=== PATIENT | male | born 1985 | race Caucasian/White ===

== ENCOUNTER 2017-02-03 17:03 | Emergency (ER) | payer OTHER ==
[~2017-02-03] VITALS: Ht 188 cm; Wt 88.2 kg
[~2017-02-03 17:03] MED LIST: INSLAN SQ; INSNOV SQ; LURA80 PO; QUET300T2 PO; SERT50TA12 PO
[2017-02-03 17:23] LABS: GLUCOSE,POINT OF CARE 172 MG/DL (70-110)
[2017-02-03] MEDS ORDERED: TOPI100T37 PO (17:36)
[2017-02-03] MEDS ORDERED: HALO10 PO (17:36)
[2017-02-03] MEDS ORDERED: TRAZ-147 PO (17:36)
[2017-02-03] MEDS ORDERED: BENZ2TAB10 PO (17:36)
[2017-02-03] MEDS ORDERED: OMEP20 PO (17:36)
[2017-02-03] MEDS ORDERED: VENL50TA44 PO (17:36)
[2017-02-03] MEDS ORDERED: PANT40TA25 PO (17:36)
[2017-02-03] MEDS ORDERED: ZIPR80CA2 PO (17:36)
[2017-02-03 17:44] LABS: BASOPHILS # (AUTO) 0.06 K/uL (0.00-0.20); BASOPHILS % (AUTO) 0.4 % (0.0-2.0); EOSINOPHILS # (AUTO) 0.05 K/uL (0.00-0.70); EOSINOPHILS % (AUTO) 0.33 % (1.0-6.0); HEMATOCRIT 37.5 % (41-53); HEMOGLOBIN 12.6 g/dL (13.5-17.5); LYMPHOCYTES # (AUTO) 2.8 K/uL (1.0-4.8); LYMPHOCYTES % (AUTO) 18.4 % (22.0-44.0); MEAN CORPUSCULAR HEMOGLOBIN 31.4 pg (26.0-34.0); MEAN CORPUSCULAR HGB CONC 33.5 G/dL (31.0-37.0); MEAN CORPUSCULAR VOLUME 94 fL (80-100); MONOCYTES # (AUTO) 0.8 K/uL (0.1-1.0); MONOCYTES % (AUTO) 5.3 % (2.0-9.0); NEUTROPHILS # (AUTO) 11.6 K/uL (1.8-7.7); NEUTROPHILS % (AUTO) 75.6 % (40.0-70.0); PLATELET COUNT (AUTO) 450 K/uL (150-450); RED CELL DISTRIBUTION WIDTH 15.2 % (11.5-14.5); WHITE BLOOD COUNT (AUTO) 15.3 K/uL (4.5-11.0)
[2017-02-03 17:57] LABS: ANION GAP 14 mmol/L (8-16); CALCIUM, TOTAL 9.3 mg/dL (8.8-10.5); CARBON DIOXIDE 24 mmol/L (22-29); CHLORIDE 99 mmol/L (98-107); CREATININE 1.13 mg/dL (0.60-1.30); GLOMERULAR FILTR. RATE CALC > 60 mL/min (>60); SODIUM SERUM 137 mmol/L (136-145); UREA NITROGEN, BLOOD 15 mg/dL (7-18)
[2017-02-03 18:02] LABS: ALANINE AMINOTRANSFERASE 43 U/L (12-78); ALBUMIN 3.6 g/dL (3.4-5.0); ASPARTATE AMINOTRANSFERASE 24 U/L (15-37); BILIRUBIN,TOTAL 0.7 mg/dL (0.1-1.0); TOTAL PROTEIN, SERUM 7.5 g/dL (6.4-8.2)
[2017-02-03] MEDS ORDERED: ONDANSETRON HCL 4 MG/2 ML VIAL IVP ONE (18:15)
[2017-02-03] MEDS ORDERED: MORPHINE SULFATE 4 MG/ML SYRINGE IVP ONE (18:15)
[2017-02-03 18:19] LABS: APPEARANCE,URINE CLEAR (CLEAR); GLUCOSE, URINE (UA) >=1000 mg/dL (NEGATIVE); KETONES,URINE >=80 mg/dL (NEGATIVE); LEUKOCYTE ESTERASE ,URINE NEGATIVE (NEGATIVE); OCCULT BLOOD,URINE NEGATIVE (NEGATIVE); PROTEIN,URINE NEGATIVE (NEGATIVE)
[2017-02-03 18:24] LABS: ADD UA MICROSCOPIC YES
[2017-02-03 18:26] LABS: SQUAMOUS EPITHELIAL CELL,UR Few /LPF (None Seen)
[2017-02-03 18:27] LABS: RBC,URINE None Seen /HPF (0-2); WBC,URINE None Seen /HPF (0-5)
[2017-02-03 21:45] VITALS: BP 104/64
== END 2017-02-03 22:37 | disposition home or self-care (01) ==
LOC: EMS 17:04
DX: E11.43 Type 2 diabetes mellitus with diabetic autonomic (poly)neuropathy (principal); K31.84 Gastroparesis; E78.00 Pure hypercholesterolemia, unspecified; E03.9 Hypothyroidism, unspecified; Z79.4 Long term (current) use of insulin; Z88.8 Allergy status to other drugs, medicaments and biological substances
CPT/HCPCS: 36415; 74022; 80053; 80307; 81001; 82962; 83690; 85025; 96374; 96375; 99285; J2270; J2405

== ENCOUNTER 2017-02-04 00:43 | Inpatient (IN) | payer OTHER ==
[~2017-02-04] VITALS: Ht 188 cm; Wt 87.4 kg
[~2017-02-04 00:43] MED LIST changes: +BENZ2TAB10 PO; +HALO10 PO; +OMEP20 PO; +PANT40TA25 PO; -QUET300T2 PO; -SERT50TA12 PO; +TOPI100T37 PO; +TRAZ-147 PO; +VENL50TA44 PO; +ZIPR80CA2 PO
[2017-02-04 01:27] LABS: GLUCOSE,POINT OF CARE 82 MG/DL (70-110)
[2017-02-04 01:52] LABS: GLUCOSE,POINT OF CARE 42 MG/DL (70-110)
[2017-02-04 02:22] LABS: GLUCOSE,POINT OF CARE 55 MG/DL (70-110)
[2017-02-04 02:57] LABS: GLUCOSE COMMENT 1 Repeated; GLUCOSE,POINT OF CARE 33 MG/DL (70-110)
[2017-02-04] MEDS ORDERED: DEXTROSE 50%-WATER 25 GM/50 ML SYRINGE IVP ONE ×2 (03:00→04:45)
[2017-02-04 03:55] LABS: BASOPHILS % (AUTO) 0.4 % (0.0-2.0); EOSINOPHILS % (AUTO) 0.8 % (1.0-6.0); HEMATOCRIT 35.3 % (41-53); HEMOGLOBIN 12.2 g/dL (13.5-17.5); LYMPHOCYTES # (AUTO) 2.3 K/uL (1.0-4.8); LYMPHOCYTES % (AUTO) 23.1 % (22.0-44.0); MEAN CORPUSCULAR HEMOGLOBIN 32.1 pg (26.0-34.0); MEAN CORPUSCULAR HGB CONC 34.7 G/dL (31.0-37.0); MEAN CORPUSCULAR VOLUME 92 fL (80-100); MONOCYTES % (AUTO) 9.8 % (2.0-9.0); NEUTROPHILS # (AUTO) 6.6 K/uL (1.8-7.7); NEUTROPHILS % (AUTO) 65.9 % (40.0-70.0); PLATELET COUNT (AUTO) 439 K/uL (150-450); RED BLOOD CELL COUNT(AUTO) 3.81 MIL/uL (4.50-5.90); RED CELL DISTRIBUTION WIDTH 15.2 % (11.5-14.5)
[2017-02-04 04:01] LABS: ANION GAP 11 mmol/L (8-16); CARBON DIOXIDE 28 mmol/L (22-29); CHLORIDE 104 mmol/L (98-107); GLOMERULAR FILTR. RATE CALC > 60 mL/min (>60); POTASSIUM 3.1 mmol/L (3.5-5.1); SODIUM SERUM 143 mmol/L (136-145); UREA NITROGEN, BLOOD 14 mg/dL (7-18)
[2017-02-04 04:03] LABS: GLUCOSE,POINT OF CARE 75 MG/DL (70-110)
[2017-02-04 04:07] LABS: ALANINE AMINOTRANSFERASE 39 U/L (12-78); ALBUMIN 3.5 g/dL (3.4-5.0); ASPARTATE AMINOTRANSFERASE 20 U/L (15-37); BILIRUBIN,TOTAL 0.6 mg/dL (0.1-1.0); TOTAL PROTEIN, SERUM 7.3 g/dL (6.4-8.2)
[2017-02-04] MEDS ORDERED: 0.9% SODIUM CHLORIDE 10 ML SYRINGE IVP PRN (04:45)
[2017-02-04] MEDS ORDERED: DEXTROSE 10%-WATER 1,000 ML IV ONE (04:45)
[2017-02-04] MEDS ORDERED: ACETAMINOPHEN 325 MG TABLET PO PRN (04:45)
[2017-02-04] MEDS ORDERED: ONDANSETRON HCL 4 MG/2 ML VIAL IVP PRN ×2 (04:45→09:00)
[2017-02-04 04:52] LABS: GLUCOSE,POINT OF CARE 52 MG/DL (70-110)
[2017-02-04] MEDS ORDERED: POTASSIUM CHLORIDE 10% 40 MEQ/30 ML LIQUID UDCUP PO ONE (05:00)
[2017-02-04 05:18] LABS: GLUCOSE,POINT OF CARE 106 MG/DL (70-110)
[2017-02-04 08:15] VITALS: BP 132/89
[2017-02-04] MEDS ORDERED: DEXTROSE 50%-WATER 25 GM/50 ML SYRINGE IVP PRN (09:00)
[2017-02-04] MEDS ORDERED: MAGNESIUM HYDROXIDE SUSPENSION 30 ML UDCUP PO PRN (09:00)
[2017-02-04 11:00] VITALS: BP 133/68
[2017-02-04] MEDS: INSULIN ASPART 100 UNITS/ML SQ PRN ×3 (12:06→20:42)
[2017-02-04 12:17] LABS: GLUCOSE COMMENT 1 Received Meds; GLUCOSE,POINT OF CARE 387 MG/DL (70-110)
[2017-02-04] MEDS: TOPIRAMATE 100 MG TABLET PO SCH ×2 (12:34→19:57)
[2017-02-04] MEDS: DOCUSATE SODIUM 100 MG CAPSULE PO SCH ×2 (12:34→19:57)
[2017-02-04] MEDS: PANTOPRAZOLE SODIUM 40 MG DR TABLET PO SCH (12:34)
[2017-02-04] MEDS: VENLAFAXINE HCL 37.5 MG ER CAPSULE PO SCH (12:34)
[2017-02-04] MEDS ORDERED: INFLUENZA VIRUS VACCINE QVS 2017-18 (3YR+)/PF 60 MCG/0.5 ML SYRINGE IM ONE (13:00)
[2017-02-04 15:10] VITALS: BP 138/61
[2017-02-04] MEDS: ZIPRASIDONE HCL 60 MG CAPSULE PO SCH (18:23)
[2017-02-04 18:38] LABS: GLUCOSE COMMENT 1 Received Meds; GLUCOSE,POINT OF CARE 350 MG/DL (70-110)
[2017-02-04] MEDS: HALOPERIDOL 10 MG TABLET PO SCH (19:57)
[2017-02-04 20:04] VITALS: BP 118/71
[2017-02-04 23:30] VITALS: BP 122/72
[2017-02-05] MEDS: ACETAMINOPHEN 325 MG TABLET PO PRN ×3 (04:20→21:07)
[2017-02-05 04:30] VITALS: BP 103/57
[2017-02-05 05:37] LABS: GLUCOSE,POINT OF CARE > 600 MG/DL (70-110)
[2017-02-05] MEDS ORDERED: INSULIN ASPART 100 UNITS/ML SQ ONE (06:30)
[2017-02-05 07:10] VITALS: BP 124/68
[2017-02-05] MEDS: DOCUSATE SODIUM 100 MG CAPSULE PO SCH ×2 (08:37→20:54)
[2017-02-05] MEDS: PANTOPRAZOLE SODIUM 40 MG DR TABLET PO SCH (08:37)
[2017-02-05] MEDS: ZIPRASIDONE HCL 60 MG CAPSULE PO SCH ×2 (08:37→18:45)
[2017-02-05] MEDS: TOPIRAMATE 100 MG TABLET PO SCH ×2 (08:37→20:54)
[2017-02-05] MEDS: VENLAFAXINE HCL 37.5 MG ER CAPSULE PO SCH (08:37)
[2017-02-05] MEDS: INSULIN DETEMIR 100 UNITS/ML SQ SCH ×2 (10:15→21:04)
[2017-02-05 11:03] VITALS: BP 104/54
[2017-02-05] MEDS: INSULIN ASPART 100 UNITS/ML SQ PRN ×2 (12:12→21:05)
[2017-02-05 12:48] LABS: GLUCOSE COMMENT 1 Received Meds; GLUCOSE,POINT OF CARE 375 MG/DL (70-110)
[2017-02-05 12:48] LABS: GLUCOSE COMMENT 1 Received Meds; GLUCOSE,POINT OF CARE 330 MG/DL (70-110)
[2017-02-05 16:01] VITALS: BP 115/60
[2017-02-05 17:52] LABS: GLUCOSE COMMENT 1 Received Meds; GLUCOSE,POINT OF CARE 395 MG/DL (70-110)
[2017-02-05 19:37] VITALS: BP 120/71
[2017-02-05 20:03] LABS: GLUCOSE COMMENT 1 Doctor Notified; GLUCOSE,POINT OF CARE 525 MG/DL (70-110)
[2017-02-05 20:03] LABS: GLUCOSE COMMENT 1 Stat Lab Glu Request; GLUCOSE COMMENT 2 Received Meds; GLUCOSE,POINT OF CARE 546 MG/DL (70-110)
[2017-02-05 20:03] LABS: GLUCOSE COMMENT 1 Received Meds; GLUCOSE,POINT OF CARE 202 MG/DL (70-110)
[2017-02-05] MEDS: HALOPERIDOL 10 MG TABLET PO SCH (20:54)
[2017-02-05 21:17] LABS: GLUCOSE COMMENT 1 Received Meds; GLUCOSE,POINT OF CARE 310 MG/DL (70-110)
[2017-02-05 23:24] VITALS: BP 114/65
[2017-02-06 04:59] VITALS: BP 100/54
[2017-02-06] MEDS: INSULIN ASPART 100 UNITS/ML SQ PRN ×4 (05:48→20:33)
[2017-02-06 05:58] LABS: GLUCOSE COMMENT 1 Received Meds; GLUCOSE,POINT OF CARE 150 MG/DL (70-110)
[2017-02-06 07:01] VITALS: BP 109/58
[2017-02-06] MEDS: ZIPRASIDONE HCL 60 MG CAPSULE PO SCH ×2 (08:32→16:20)
[2017-02-06] MEDS: TOPIRAMATE 100 MG TABLET PO SCH ×2 (08:33→19:39)
[2017-02-06] MEDS: PANTOPRAZOLE SODIUM 40 MG DR TABLET PO SCH (08:33)
[2017-02-06] MEDS: DOCUSATE SODIUM 100 MG CAPSULE PO SCH ×2 (08:33→19:39)
[2017-02-06] MEDS: INSULIN DETEMIR 100 UNITS/ML SQ SCH ×2 (08:34→20:34)
[2017-02-06] MEDS: ACETAMINOPHEN 325 MG TABLET PO PRN (08:40)
[2017-02-06] MEDS ORDERED: INSLAN SQ (09:50)
[2017-02-06 11:25] VITALS: BP 106/62
[2017-02-06 13:27] LABS: GLUCOSE COMMENT 1 Received Meds; GLUCOSE,POINT OF CARE 320 MG/DL (70-110)
[2017-02-06 16:16] VITALS: BP 113/57
[2017-02-06] MEDS: VENLAFAXINE HCL 37.5 MG ER CAPSULE PO SCH (16:20)
[2017-02-06 19:32] LABS: GLUCOSE COMMENT 1 Received Meds; GLUCOSE,POINT OF CARE 314 MG/DL (70-110)
[2017-02-06] MEDS: HALOPERIDOL 10 MG TABLET PO SCH (19:39)
[2017-02-06 20:13] VITALS: BP 108/60
[2017-02-06 20:43] LABS: GLUCOSE COMMENT 1 Received Meds; GLUCOSE,POINT OF CARE 298 MG/DL (70-110)
[2017-02-06 23:06] VITALS: BP 116/68
[2017-02-07 05:27] VITALS: BP 104/57
[2017-02-07] MEDS: INSULIN ASPART 100 UNITS/ML SQ PRN ×4 (05:43→21:08)
[2017-02-07 06:53] LABS: GLUCOSE COMMENT 1 Received Meds; GLUCOSE,POINT OF CARE 260 MG/DL (70-110)
[2017-02-07 07:10] VITALS: BP 104/54
[2017-02-07] MEDS: DOCUSATE SODIUM 100 MG CAPSULE PO SCH ×2 (07:59→20:08)
[2017-02-07] MEDS: PANTOPRAZOLE SODIUM 40 MG DR TABLET PO SCH (07:59)
[2017-02-07] MEDS: TOPIRAMATE 100 MG TABLET PO SCH ×2 (07:59→20:08)
[2017-02-07] MEDS: ZIPRASIDONE HCL 60 MG CAPSULE PO SCH ×2 (07:59→17:43)
[2017-02-07] MEDS: VENLAFAXINE HCL 37.5 MG ER CAPSULE PO SCH (07:59)
[2017-02-07] MEDS: INSULIN DETEMIR 100 UNITS/ML SQ SCH ×2 (08:00→21:06)
[2017-02-07 11:15] VITALS: BP 105/62
[2017-02-07 11:22] LABS: GLUCOSE COMMENT 1 Received Meds; GLUCOSE,POINT OF CARE 237 MG/DL (70-110)
[2017-02-07 15:06] VITALS: BP 101/57
[2017-02-07 17:22] LABS: GLUCOSE COMMENT 1 Received Meds; GLUCOSE,POINT OF CARE 188 MG/DL (70-110)
[2017-02-07 19:49] VITALS: BP 120/80
[2017-02-07] MEDS: HALOPERIDOL 10 MG TABLET PO SCH (20:08)
[2017-02-07] MEDS ORDERED: DEXTROSE 50%-WATER 25 GM/50 ML SYRINGE IVP PRN (21:00)
[2017-02-07 22:37] LABS: GLUCOSE,POINT OF CARE 317 MG/DL (70-110)
[2017-02-07 23:20] VITALS: BP 122/70
[2017-02-08 00:22] LABS: GLUCOSE,POINT OF CARE 207 MG/DL (70-110)
[2017-02-08 01:33] LABS: GLUCOSE COMMENT 1 Doctor Notified; GLUCOSE COMMENT 2 Received Meds; GLUCOSE,POINT OF CARE 493 MG/DL (70-110)
[2017-02-08 05:05] VITALS: BP 107/65
[2017-02-08] MEDS: INSULIN ASPART 100 UNITS/ML SQ PRN ×4 (05:59→20:43)
[2017-02-08 06:18] LABS: GLUCOSE COMMENT 1 Received Meds; GLUCOSE,POINT OF CARE 236 MG/DL (70-110)
[2017-02-08 07:06] VITALS: BP 98/69
[2017-02-08] MEDS: PANTOPRAZOLE SODIUM 40 MG DR TABLET PO SCH (08:26)
[2017-02-08] MEDS: VENLAFAXINE HCL 37.5 MG ER CAPSULE PO SCH (08:26)
[2017-02-08] MEDS: TOPIRAMATE 100 MG TABLET PO SCH ×2 (08:26→19:54)
[2017-02-08] MEDS: ZIPRASIDONE HCL 60 MG CAPSULE PO SCH ×2 (08:26→17:08)
[2017-02-08] MEDS: DOCUSATE SODIUM 100 MG CAPSULE PO SCH ×2 (08:26→19:54)
[2017-02-08] MEDS: INSULIN DETEMIR 100 UNITS/ML SQ SCH ×2 (08:36→20:44)
[2017-02-08 11:16] VITALS: BP 108/67
[2017-02-08] MEDS: ACETAMINOPHEN 325 MG TABLET PO PRN (11:30)
[2017-02-08 16:06] VITALS: BP 99/50
[2017-02-08] MEDS: HALOPERIDOL 10 MG TABLET PO SCH (19:54)
[2017-02-08 19:56] VITALS: BP 108/67
[2017-02-08 20:59] LABS: GLUCOSE COMMENT 1 Received Meds; GLUCOSE,POINT OF CARE 243 MG/DL (70-110)
[2017-02-08 20:59] LABS: GLUCOSE COMMENT 1 Received Meds; GLUCOSE,POINT OF CARE 218 MG/DL (70-110)
[2017-02-08 20:59] LABS: GLUCOSE COMMENT 1 Received Meds; GLUCOSE,POINT OF CARE 318 MG/DL (70-110)
[2017-02-08 20:59] LABS: GLUCOSE,POINT OF CARE 184 MG/DL (70-110)
[2017-02-08 22:38] LABS: GLUCOSE,POINT OF CARE 102 MG/DL (70-110)
[2017-02-09] VITALS (7 sets, daily range): BP systolic 117–140; BP diastolic 57–84
[2017-02-09 06:51] LABS: GLUCOSE,POINT OF CARE 91 MG/DL (70-110)
[2017-02-09] MEDS: MULTIVITAMINS WITH MINERALS, THERAPEUTIC TABLET PO SCH (08:46)
[2017-02-09] MEDS: ZIPRASIDONE HCL 60 MG CAPSULE PO SCH (08:46)
[2017-02-09] MEDS: DOCUSATE SODIUM 100 MG CAPSULE PO SCH ×2 (08:46→19:57)
[2017-02-09] MEDS: PANTOPRAZOLE SODIUM 40 MG DR TABLET PO SCH (08:46)
[2017-02-09] MEDS: VENLAFAXINE HCL 37.5 MG ER CAPSULE PO SCH (08:46)
[2017-02-09] MEDS: TOPIRAMATE 100 MG TABLET PO SCH ×2 (08:46→19:58)
[2017-02-09] MEDS: INSULIN DETEMIR 100 UNITS/ML SQ SCH ×2 (08:50→21:05)
[2017-02-09 10:03] LABS: GLUCOSE COMMENT 1 Received Meds; GLUCOSE,POINT OF CARE 220 MG/DL (70-110)
[2017-02-09] MEDS: ACETAMINOPHEN 325 MG TABLET PO PRN ×2 (11:07→18:28)
[2017-02-09] MEDS: INSULIN ASPART 100 UNITS/ML SQ PRN ×2 (11:38→18:51)
[2017-02-09 12:08] LABS: GLUCOSE,POINT OF CARE 330 MG/DL (70-110)
[2017-02-09] MEDS: BENZTROPINE MESYLATE 0.5 MG TABLET PO SCH ×2 (18:28→19:58)
[2017-02-09] MEDS: ZIPRASIDONE HCL 80 MG CAPSULE PO SCH (18:29)
[2017-02-09 18:52] LABS: GLUCOSE,POINT OF CARE 465 MG/DL (70-110)
[2017-02-09 22:48] LABS: GLUCOSE COMMENT 1 Juice/Food/D50 Given; GLUCOSE,POINT OF CARE 374 MG/DL (70-110)
[2017-02-10] MEDS: ACETAMINOPHEN 325 MG TABLET PO PRN ×3 (00:18→20:15)
[2017-02-10 01:07] LABS: GLUCOSE,POINT OF CARE 349 MG/DL (70-110)
[2017-02-10 05:16] VITALS: BP 137/91
[2017-02-10] MEDS: INSULIN ASPART 100 UNITS/ML SQ PRN ×4 (05:17→22:11)
[2017-02-10 06:32] LABS: GLUCOSE COMMENT 1 Juice/Food/D50 Given; GLUCOSE,POINT OF CARE 260 MG/DL (70-110)
[2017-02-10 07:35] VITALS: BP 130/86
[2017-02-10] MEDS: DOCUSATE SODIUM 100 MG CAPSULE PO SCH ×2 (08:06→20:15)
[2017-02-10] MEDS: TOPIRAMATE 100 MG TABLET PO SCH ×2 (08:06→20:15)
[2017-02-10] MEDS: ZIPRASIDONE HCL 80 MG CAPSULE PO SCH ×2 (08:06→17:43)
[2017-02-10] MEDS: BENZTROPINE MESYLATE 0.5 MG TABLET PO SCH ×2 (08:06→20:15)
[2017-02-10] MEDS: MULTIVITAMINS WITH MINERALS, THERAPEUTIC TABLET PO SCH (08:06)
[2017-02-10] MEDS: VENLAFAXINE HCL 75 MG ER CAPSULE PO SCH (08:07)
[2017-02-10] MEDS: PANTOPRAZOLE SODIUM 40 MG DR TABLET PO SCH (08:09)
[2017-02-10 08:12] LABS: GLUCOSE COMMENT 1 Juice/Food/D50 Given; GLUCOSE,POINT OF CARE 182 MG/DL (70-110)
[2017-02-10] MEDS: INSULIN DETEMIR 100 UNITS/ML SQ SCH ×2 (08:12→22:12)
[2017-02-10 11:28] LABS: GLUCOSE COMMENT 1 Juice/Food/D50 Given; GLUCOSE,POINT OF CARE 438 MG/DL (70-110)
[2017-02-10] MEDS ORDERED: INSULIN ASPART 100 UNITS/ML SQ ONE (11:30)
[2017-02-10 11:38] VITALS: BP 134/87
[2017-02-10 15:20] VITALS: BP 119/61
[2017-02-10 17:38] LABS: GLUCOSE COMMENT 1 Received Meds; GLUCOSE,POINT OF CARE 328 MG/DL (70-110)
[2017-02-10 19:42] VITALS: BP 105/58
[2017-02-10 23:52] LABS: GLUCOSE COMMENT 1 Juice/Food/D50 Given; GLUCOSE,POINT OF CARE 437 MG/DL (70-110)
[2017-02-11] VITALS (7 sets, daily range): BP systolic 105–127; BP diastolic 55–75
[2017-02-11] MEDS: ACETAMINOPHEN 325 MG TABLET PO PRN ×2 (03:23→23:08)
[2017-02-11] MEDS: INSULIN ASPART 100 UNITS/ML SQ PRN ×3 (05:25→17:10)
[2017-02-11 05:33] LABS: GLUCOSE COMMENT 1 Juice/Food/D50 Given; GLUCOSE,POINT OF CARE 247 MG/DL (70-110)
[2017-02-11] MEDS: MULTIVITAMINS WITH MINERALS, THERAPEUTIC TABLET PO SCH (08:14)
[2017-02-11] MEDS: BENZTROPINE MESYLATE 0.5 MG TABLET PO SCH ×2 (08:14→19:46)
[2017-02-11] MEDS: ZIPRASIDONE HCL 80 MG CAPSULE PO SCH ×2 (08:14→17:08)
[2017-02-11] MEDS: TOPIRAMATE 100 MG TABLET PO SCH ×2 (08:14→19:46)
[2017-02-11] MEDS: VENLAFAXINE HCL 75 MG ER CAPSULE PO SCH (08:14)
[2017-02-11] MEDS: PANTOPRAZOLE SODIUM 40 MG DR TABLET PO SCH (08:14)
[2017-02-11] MEDS: DOCUSATE SODIUM 100 MG CAPSULE PO SCH ×2 (08:15→19:46)
[2017-02-11] MEDS: INSULIN DETEMIR 100 UNITS/ML SQ SCH ×2 (08:15→23:57)
[2017-02-11 17:28] LABS: GLUCOSE COMMENT 1 Received Meds; GLUCOSE,POINT OF CARE 275 MG/DL (70-110)
[2017-02-11 17:38] LABS: GLUCOSE COMMENT 1 Received Meds; GLUCOSE,POINT OF CARE 234 MG/DL (70-110)
[2017-02-11 22:12] LABS: GLUCOSE,POINT OF CARE 73 MG/DL (70-110)
[2017-02-11 23:22] LABS: GLUCOSE COMMENT 1 Juice/Food/D50 Given; GLUCOSE,POINT OF CARE 66 MG/DL (70-110)
[2017-02-12 00:38] LABS: GLUCOSE,POINT OF CARE 89 MG/DL (70-110)
[2017-02-12 03:28] VITALS: BP 114/60
[2017-02-12] MEDS: ACETAMINOPHEN 325 MG TABLET PO PRN ×2 (05:50→16:20)
[2017-02-12] MEDS: INSULIN ASPART 100 UNITS/ML SQ PRN ×3 (05:50→20:20)
[2017-02-12 06:09] LABS: GLUCOSE COMMENT 1 Received Meds; GLUCOSE,POINT OF CARE 158 MG/DL (70-110)
[2017-02-12 08:07] VITALS: BP 123/74
[2017-02-12] MEDS: BENZTROPINE MESYLATE 0.5 MG TABLET PO SCH ×2 (08:38→19:51)
[2017-02-12] MEDS: ZIPRASIDONE HCL 80 MG CAPSULE PO SCH ×2 (08:39→17:47)
[2017-02-12] MEDS: DOCUSATE SODIUM 100 MG CAPSULE PO SCH ×2 (08:39→19:51)
[2017-02-12] MEDS: TOPIRAMATE 100 MG TABLET PO SCH ×2 (08:39→19:51)
[2017-02-12] MEDS: PANTOPRAZOLE SODIUM 40 MG DR TABLET PO SCH (08:39)
[2017-02-12] MEDS: VENLAFAXINE HCL 75 MG ER CAPSULE PO SCH (08:39)
[2017-02-12] MEDS: INSULIN DETEMIR 100 UNITS/ML SQ SCH ×2 (08:41→20:19)
[2017-02-12] MEDS: MULTIVITAMINS WITH MINERALS, THERAPEUTIC TABLET PO SCH (08:44)
[2017-02-12 11:30] VITALS: BP 115/69
[2017-02-12 12:08] LABS: GLUCOSE,POINT OF CARE 132 MG/DL (70-110)
[2017-02-12 16:07] VITALS: BP 113/73
[2017-02-12 18:03] LABS: GLUCOSE COMMENT 1 Received Meds; GLUCOSE,POINT OF CARE 285 MG/DL (70-110)
[2017-02-12 20:31] VITALS: BP 112/59
[2017-02-12 23:12] LABS: GLUCOSE COMMENT 1 Received Meds; GLUCOSE,POINT OF CARE 200 MG/DL (70-110)
[2017-02-13] MEDS: INSULIN ASPART 100 UNITS/ML SQ PRN ×5 (05:34→20:44)
[2017-02-13 05:44] VITALS: BP 116/67
[2017-02-13 06:52] LABS: GLUCOSE COMMENT 1 Received Meds; GLUCOSE,POINT OF CARE 130 MG/DL (70-110)
[2017-02-13] MEDS: DOCUSATE SODIUM 100 MG CAPSULE PO SCH ×2 (08:30→20:15)
[2017-02-13] MEDS: BENZTROPINE MESYLATE 0.5 MG TABLET PO SCH ×2 (08:30→20:15)
[2017-02-13] MEDS: ZIPRASIDONE HCL 80 MG CAPSULE PO SCH ×2 (08:30→18:01)
[2017-02-13] MEDS: PANTOPRAZOLE SODIUM 40 MG DR TABLET PO SCH (08:31)
[2017-02-13] MEDS: TOPIRAMATE 100 MG TABLET PO SCH ×2 (08:31→20:15)
[2017-02-13] MEDS: MULTIVITAMINS WITH MINERALS, THERAPEUTIC TABLET PO SCH (08:31)
[2017-02-13] MEDS: VENLAFAXINE HCL 75 MG ER CAPSULE PO SCH (08:31)
[2017-02-13] MEDS: INSULIN DETEMIR 100 UNITS/ML SQ SCH ×2 (08:39→20:44)
[2017-02-13 12:02] LABS: GLUCOSE COMMENT 1 Received Meds; GLUCOSE,POINT OF CARE 363 MG/DL (70-110)
[2017-02-13 15:55] VITALS: BP 129/76
[2017-02-13 18:48] LABS: GLUCOSE,POINT OF CARE 423 MG/DL (70-110)
[2017-02-13 19:57] VITALS: BP 122/70
[2017-02-13 23:08] VITALS: BP 115/62
[2017-02-13 23:17] LABS: GLUCOSE COMMENT 1 Received Meds; GLUCOSE,POINT OF CARE 167 MG/DL (70-110)
[2017-02-14 05:22] VITALS: BP 125/72
[2017-02-14 07:32] VITALS: BP 147/74
[2017-02-14] MEDS: VENLAFAXINE HCL 75 MG ER CAPSULE PO SCH (08:42)
[2017-02-14] MEDS: TOPIRAMATE 100 MG TABLET PO SCH ×2 (08:42→20:56)
[2017-02-14] MEDS: BENZTROPINE MESYLATE 0.5 MG TABLET PO SCH ×2 (08:42→20:56)
[2017-02-14] MEDS: DOCUSATE SODIUM 100 MG CAPSULE PO SCH ×2 (08:42→20:56)
[2017-02-14] MEDS: PANTOPRAZOLE SODIUM 40 MG DR TABLET PO SCH (08:42)
[2017-02-14] MEDS: MULTIVITAMINS WITH MINERALS, THERAPEUTIC TABLET PO SCH (08:42)
[2017-02-14] MEDS: ZIPRASIDONE HCL 80 MG CAPSULE PO SCH ×2 (08:42→17:48)
[2017-02-14] MEDS: INSULIN DETEMIR 100 UNITS/ML SQ SCH ×2 (08:47→21:06)
[2017-02-14 09:27] LABS: GLUCOSE,POINT OF CARE 99 MG/DL (70-110)
[2017-02-14 11:51] VITALS: BP 107/65
[2017-02-14] MEDS: INSULIN ASPART 100 UNITS/ML SQ PRN ×3 (11:55→21:09)
[2017-02-14 12:08] LABS: GLUCOSE COMMENT 1 Received Meds; GLUCOSE,POINT OF CARE 443 MG/DL (70-110)
[2017-02-14 15:18] VITALS: BP 133/75
[2017-02-14 17:52] LABS: GLUCOSE COMMENT 1 Received Meds; GLUCOSE,POINT OF CARE 222 MG/DL (70-110)
[2017-02-14 19:36] VITALS: BP 136/72
[2017-02-14 23:02] VITALS: BP 112/57
[2017-02-15 01:27] LABS: GLUCOSE COMMENT 1 Received Meds; GLUCOSE,POINT OF CARE 212 MG/DL (70-110)
[2017-02-15 04:00] VITALS: BP 113/70
[2017-02-15] MEDS: INSULIN ASPART 100 UNITS/ML SQ PRN ×4 (06:22→20:31)
[2017-02-15 06:48] LABS: GLUCOSE COMMENT 1 Juice/Food/D50 Given; GLUCOSE,POINT OF CARE 64 MG/DL (70-110)
[2017-02-15 07:10] VITALS: BP 120/64
[2017-02-15 08:06] LABS: GLUCOSE,POINT OF CARE 218 MG/DL (70-110)
[2017-02-15] MEDS: BENZTROPINE MESYLATE 0.5 MG TABLET PO SCH ×2 (08:20→20:20)
[2017-02-15] MEDS: ZIPRASIDONE HCL 80 MG CAPSULE PO SCH ×2 (08:20→17:23)
[2017-02-15] MEDS: DOCUSATE SODIUM 100 MG CAPSULE PO SCH ×2 (08:20→20:20)
[2017-02-15] MEDS: PANTOPRAZOLE SODIUM 40 MG DR TABLET PO SCH (08:20)
[2017-02-15] MEDS: VENLAFAXINE HCL 75 MG ER CAPSULE PO SCH (08:20)
[2017-02-15] MEDS: MULTIVITAMINS WITH MINERALS, THERAPEUTIC TABLET PO SCH (08:21)
[2017-02-15] MEDS: TOPIRAMATE 100 MG TABLET PO SCH ×2 (08:21→20:20)
[2017-02-15] MEDS: INSULIN DETEMIR 100 UNITS/ML SQ SCH ×2 (08:29→20:24)
[2017-02-15 11:04] VITALS: BP 117/70
[2017-02-15] MEDS ORDERED: INSULIN ASPART 100 UNITS/ML SQ PRN (12:00)
[2017-02-15 14:47] LABS: GLUCOSE COMMENT 1 Received Meds; GLUCOSE,POINT OF CARE 435 MG/DL (70-110)
[2017-02-15 15:08] VITALS: BP 110/63
[2017-02-15 17:47] LABS: GLUCOSE COMMENT 1 Received Meds; GLUCOSE,POINT OF CARE 354 MG/DL (70-110)
[2017-02-15 20:27] VITALS: BP 135/64
[2017-02-15 23:37] LABS: GLUCOSE COMMENT 1 Received Meds; GLUCOSE,POINT OF CARE 150 MG/DL (70-110)
[2017-02-16] VITALS (7 sets, daily range): BP systolic 118–132; BP diastolic 62–73
[2017-02-16] MEDS: INSULIN ASPART 100 UNITS/ML SQ PRN ×3 (06:18→20:29)
[2017-02-16 06:33] LABS: GLUCOSE COMMENT 1 Doctor Notified; GLUCOSE,POINT OF CARE 453 MG/DL (70-110)
[2017-02-16] MEDS: PANTOPRAZOLE SODIUM 40 MG DR TABLET PO SCH (08:02)
[2017-02-16] MEDS: TOPIRAMATE 100 MG TABLET PO SCH ×2 (08:02→20:22)
[2017-02-16] MEDS: VENLAFAXINE HCL 75 MG ER CAPSULE PO SCH (08:02)
[2017-02-16] MEDS: DOCUSATE SODIUM 100 MG CAPSULE PO SCH ×2 (08:02→20:22)
[2017-02-16] MEDS: ZIPRASIDONE HCL 80 MG CAPSULE PO SCH ×2 (08:02→17:25)
[2017-02-16] MEDS: BENZTROPINE MESYLATE 0.5 MG TABLET PO SCH ×2 (08:02→20:22)
[2017-02-16] MEDS: MULTIVITAMINS WITH MINERALS, THERAPEUTIC TABLET PO SCH (08:02)
[2017-02-16] MEDS ORDERED: INSULIN DETEMIR 100 UNITS/ML SQ SCH (09:00)
[2017-02-16 11:43] LABS: GLUCOSE,POINT OF CARE 140 MG/DL (70-110)
[2017-02-16 19:07] LABS: GLUCOSE COMMENT 1 Received Meds; GLUCOSE,POINT OF CARE 335 MG/DL (70-110)
[2017-02-16] MEDS: INSULIN DETEMIR 100 UNITS/ML SQ SCH (20:32)
[2017-02-16 20:43] LABS: GLUCOSE COMMENT 1 Received Meds; GLUCOSE,POINT OF CARE 383 MG/DL (70-110)
[2017-02-17 05:03] VITALS: BP 136/65
[2017-02-17] MEDS: INSULIN ASPART 100 UNITS/ML SQ PRN ×4 (05:59→20:45)
[2017-02-17 06:22] LABS: GLUCOSE COMMENT 1 Received Meds; GLUCOSE,POINT OF CARE 183 MG/DL (70-110)
[2017-02-17 08:15] VITALS: BP 145/83
[2017-02-17] MEDS: DOCUSATE SODIUM 100 MG CAPSULE PO SCH ×2 (08:24→20:09)
[2017-02-17] MEDS: TOPIRAMATE 100 MG TABLET PO SCH ×2 (08:24→20:09)
[2017-02-17] MEDS: PANTOPRAZOLE SODIUM 40 MG DR TABLET PO SCH (08:24)
[2017-02-17] MEDS: MULTIVITAMINS WITH MINERALS, THERAPEUTIC TABLET PO SCH (08:24)
[2017-02-17] MEDS: ZIPRASIDONE HCL 80 MG CAPSULE PO SCH ×2 (08:24→17:46)
[2017-02-17] MEDS: BENZTROPINE MESYLATE 0.5 MG TABLET PO SCH ×2 (08:25→20:09)
[2017-02-17] MEDS: VENLAFAXINE HCL 75 MG ER CAPSULE PO SCH (08:25)
[2017-02-17] MEDS: INSULIN DETEMIR 100 UNITS/ML SQ SCH ×2 (08:33→20:44)
[2017-02-17 08:37] LABS: GLUCOSE COMMENT 1 Received Meds; GLUCOSE,POINT OF CARE 205 MG/DL (70-110)
[2017-02-17] MEDS ORDERED: BENZ0.5T6 PO (09:14)
[2017-02-17] MEDS ORDERED: DSS100 PO (09:15)
[2017-02-17] MEDS ORDERED: INSLAN SQ ×2 (09:15→09:16)
[2017-02-17] MEDS ORDERED: MULT-248 PO (09:17)
[2017-02-17] MEDS ORDERED: PANT40TA25 PO (09:18)
[2017-02-17] MEDS ORDERED: TOPI100T37 PO (09:18)
[2017-02-17] MEDS ORDERED: ZIPR80CA2 PO (09:19)
[2017-02-17] MEDS ORDERED: VENL-67 PO (09:19)
[2017-02-17 11:27] LABS: GLUCOSE COMMENT 1 Received Meds; GLUCOSE,POINT OF CARE 292 MG/DL (70-110)
[2017-02-17 11:50] VITALS: BP 119/70
[2017-02-17 15:32] VITALS: BP 116/67
[2017-02-17 18:03] LABS: GLUCOSE COMMENT 1 Received Meds; GLUCOSE,POINT OF CARE 194 MG/DL (70-110)
[2017-02-17 19:18] VITALS: BP 128/72
[2017-02-18 00:24] VITALS: BP 105/58
[2017-02-18 00:59] LABS: GLUCOSE COMMENT 1 Received Meds; GLUCOSE,POINT OF CARE 237 MG/DL (70-110)
[2017-02-18 05:25] VITALS: BP 107/65
[2017-02-18 06:08] LABS: GLUCOSE COMMENT 1 Received Meds; GLUCOSE,POINT OF CARE 195 MG/DL (70-110)
[2017-02-18] MEDS: INSULIN ASPART 100 UNITS/ML SQ PRN ×4 (06:32→20:30)
[2017-02-18] MEDS: VENLAFAXINE HCL 75 MG ER CAPSULE PO SCH (07:54)
[2017-02-18] MEDS: TOPIRAMATE 100 MG TABLET PO SCH ×2 (07:54→20:29)
[2017-02-18] MEDS: MULTIVITAMINS WITH MINERALS, THERAPEUTIC TABLET PO SCH (07:54)
[2017-02-18] MEDS: PANTOPRAZOLE SODIUM 40 MG DR TABLET PO SCH (07:54)
[2017-02-18] MEDS: BENZTROPINE MESYLATE 0.5 MG TABLET PO SCH ×2 (07:55→20:29)
[2017-02-18] MEDS: ZIPRASIDONE HCL 80 MG CAPSULE PO SCH ×2 (07:55→17:37)
[2017-02-18] MEDS: DOCUSATE SODIUM 100 MG CAPSULE PO SCH ×2 (07:55→20:29)
[2017-02-18] MEDS: INSULIN DETEMIR 100 UNITS/ML SQ SCH ×2 (10:20→20:29)
[2017-02-18 11:45] VITALS: BP 115/61
[2017-02-18 12:44] LABS: GLUCOSE,POINT OF CARE 320 MG/DL (70-110)
[2017-02-18 15:34] VITALS: BP 126/72
[2017-02-18 16:54] LABS: GLUCOSE,POINT OF CARE 275 MG/DL (70-110)
[2017-02-18 19:30] VITALS: BP 118/68
[2017-02-18 23:29] VITALS: BP 124/72
[2017-02-18 23:44] LABS: GLUCOSE,POINT OF CARE 273 MG/DL (70-110)
[2017-02-19] MEDS: INSULIN ASPART 100 UNITS/ML SQ PRN ×4 (05:22→20:59)
[2017-02-19 05:28] LABS: GLUCOSE,POINT OF CARE 227 MG/DL (70-110)
[2017-02-19 07:45] VITALS: BP 124/83
[2017-02-19] MEDS: DOCUSATE SODIUM 100 MG CAPSULE PO SCH ×2 (08:20→20:08)
[2017-02-19] MEDS: ZIPRASIDONE HCL 80 MG CAPSULE PO SCH ×2 (08:20→17:37)
[2017-02-19] MEDS: VENLAFAXINE HCL 75 MG ER CAPSULE PO SCH (08:20)
[2017-02-19] MEDS: TOPIRAMATE 100 MG TABLET PO SCH ×2 (08:20→20:08)
[2017-02-19] MEDS: MULTIVITAMINS WITH MINERALS, THERAPEUTIC TABLET PO SCH (08:20)
[2017-02-19] MEDS: PANTOPRAZOLE SODIUM 40 MG DR TABLET PO SCH (08:20)
[2017-02-19] MEDS: BENZTROPINE MESYLATE 0.5 MG TABLET PO SCH ×2 (08:20→20:08)
[2017-02-19] MEDS: INSULIN DETEMIR 100 UNITS/ML SQ SCH ×2 (08:25→20:57)
[2017-02-19 09:53] LABS: GLUCOSE,POINT OF CARE 198 MG/DL (70-110)
[2017-02-19 11:53] VITALS: BP 121/62
[2017-02-19 12:22] LABS: GLUCOSE COMMENT 1 Received Meds; GLUCOSE,POINT OF CARE 322 MG/DL (70-110)
[2017-02-19 16:00] VITALS: BP 102/61
[2017-02-19 17:33] LABS: GLUCOSE COMMENT 1 Received Meds; GLUCOSE,POINT OF CARE 224 MG/DL (70-110)
[2017-02-19 19:38] VITALS: BP 121/73
[2017-02-19 21:12] LABS: GLUCOSE COMMENT 1 Received Meds; GLUCOSE,POINT OF CARE 317 MG/DL (70-110)
[2017-02-19 23:00] VITALS: BP 102/48
[2017-02-20 03:38] VITALS: BP 113/61
[2017-02-20] MEDS: INSULIN ASPART 100 UNITS/ML SQ PRN ×4 (05:50→19:43)
[2017-02-20 06:22] LABS: GLUCOSE,POINT OF CARE 153 MG/DL (70-110)
[2017-02-20 07:14] VITALS: BP 118/74
[2017-02-20] MEDS: DOCUSATE SODIUM 100 MG CAPSULE PO SCH ×2 (08:09→19:39)
[2017-02-20] MEDS: MULTIVITAMINS WITH MINERALS, THERAPEUTIC TABLET PO SCH (08:10)
[2017-02-20] MEDS: ZIPRASIDONE HCL 80 MG CAPSULE PO SCH ×2 (08:10→17:22)
[2017-02-20] MEDS: PANTOPRAZOLE SODIUM 40 MG DR TABLET PO SCH (08:10)
[2017-02-20] MEDS: VENLAFAXINE HCL 75 MG ER CAPSULE PO SCH (08:10)
[2017-02-20] MEDS: BENZTROPINE MESYLATE 0.5 MG TABLET PO SCH ×2 (08:10→19:39)
[2017-02-20] MEDS: TOPIRAMATE 100 MG TABLET PO SCH ×2 (08:10→19:39)
[2017-02-20] MEDS: INSULIN DETEMIR 100 UNITS/ML SQ SCH ×2 (08:22→19:44)
[2017-02-20 11:02] VITALS: BP_SYST 117; BP_DIAS 64; BP_DIAS 77
[2017-02-20 16:10] VITALS: BP 101/58
[2017-02-20 19:21] VITALS: BP 114/63
[2017-02-21] VITALS (7 sets, daily range): BP systolic 109–115; BP diastolic 56–71
[2017-02-21 00:10] LABS: GLUCOSE COMMENT 1 Received Meds; GLUCOSE,POINT OF CARE 333 MG/DL (70-110)
[2017-02-21 00:10] LABS: GLUCOSE COMMENT 1 Received Meds; GLUCOSE,POINT OF CARE 305 MG/DL (70-110)
[2017-02-21 00:11] LABS: GLUCOSE,POINT OF CARE 219 MG/DL (70-110)
[2017-02-21] MEDS: INSULIN ASPART 100 UNITS/ML SQ PRN ×4 (06:21→20:30)
[2017-02-21 06:33] LABS: GLUCOSE,POINT OF CARE 128 MG/DL (70-110)
[2017-02-21] MEDS: VENLAFAXINE HCL 75 MG ER CAPSULE PO SCH (08:35)
[2017-02-21] MEDS: PANTOPRAZOLE SODIUM 40 MG DR TABLET PO SCH (08:35)
[2017-02-21] MEDS: DOCUSATE SODIUM 100 MG CAPSULE PO SCH ×2 (08:35→20:20)
[2017-02-21] MEDS: BENZTROPINE MESYLATE 0.5 MG TABLET PO SCH ×2 (08:35→20:20)
[2017-02-21] MEDS: MULTIVITAMINS WITH MINERALS, THERAPEUTIC TABLET PO SCH (08:35)
[2017-02-21] MEDS: TOPIRAMATE 100 MG TABLET PO SCH ×2 (08:35→20:20)
[2017-02-21] MEDS: ZIPRASIDONE HCL 80 MG CAPSULE PO SCH ×2 (08:35→17:56)
[2017-02-21] MEDS: INSULIN DETEMIR 100 UNITS/ML SQ SCH ×2 (08:36→20:29)
[2017-02-21 11:43] LABS: GLUCOSE COMMENT 1 Received Meds; GLUCOSE,POINT OF CARE 286 MG/DL (70-110)
[2017-02-21 18:43] LABS: GLUCOSE COMMENT 1 Received Meds; GLUCOSE COMMENT 2 Doctor Notified; GLUCOSE,POINT OF CARE 408 MG/DL (70-110)
[2017-02-21 20:37] LABS: GLUCOSE COMMENT 1 Received Meds; GLUCOSE,POINT OF CARE 247 MG/DL (70-110)
[2017-02-22] MEDS: INSULIN ASPART 100 UNITS/ML SQ PRN ×4 (05:54→20:49)
[2017-02-22 06:03] LABS: GLUCOSE,POINT OF CARE 183 MG/DL (70-110)
[2017-02-22 07:29] VITALS: BP 113/66
[2017-02-22] MEDS: MULTIVITAMINS WITH MINERALS, THERAPEUTIC TABLET PO SCH (08:30)
[2017-02-22] MEDS: TOPIRAMATE 100 MG TABLET PO SCH ×2 (08:30→20:42)
[2017-02-22] MEDS: VENLAFAXINE HCL 75 MG ER CAPSULE PO SCH (08:30)
[2017-02-22] MEDS: DOCUSATE SODIUM 100 MG CAPSULE PO SCH ×2 (08:30→20:41)
[2017-02-22] MEDS: ZIPRASIDONE HCL 80 MG CAPSULE PO SCH ×2 (08:30→17:05)
[2017-02-22] MEDS: BENZTROPINE MESYLATE 0.5 MG TABLET PO SCH ×2 (08:31→20:41)
[2017-02-22] MEDS: PANTOPRAZOLE SODIUM 40 MG DR TABLET PO SCH (08:31)
[2017-02-22] MEDS: INSULIN DETEMIR 100 UNITS/ML SQ SCH ×2 (08:36→20:50)
[2017-02-22 11:27] VITALS: BP 96/69
[2017-02-22 11:38] LABS: GLUCOSE COMMENT 1 Received Meds; GLUCOSE,POINT OF CARE 288 MG/DL (70-110)
[2017-02-22 16:08] VITALS: BP 110/65
[2017-02-22 17:23] LABS: GLUCOSE COMMENT 1 Received Meds; GLUCOSE,POINT OF CARE 334 MG/DL (70-110)
[2017-02-22 19:13] VITALS: BP 103/49
[2017-02-22 22:03] LABS: GLUCOSE,POINT OF CARE 271 MG/DL (70-110)
[2017-02-22 23:05] VITALS: BP 119/72
[2017-02-23 05:43] VITALS: BP 134/80
[2017-02-23] MEDS: INSULIN ASPART 100 UNITS/ML SQ PRN ×2 (06:39→11:45)
[2017-02-23 07:39] VITALS: BP 121/71
[2017-02-23] MEDS: TOPIRAMATE 100 MG TABLET PO SCH (08:08)
[2017-02-23] MEDS: BENZTROPINE MESYLATE 0.5 MG TABLET PO SCH (08:08)
[2017-02-23] MEDS: VENLAFAXINE HCL 75 MG ER CAPSULE PO SCH (08:08)
[2017-02-23] MEDS: MULTIVITAMINS WITH MINERALS, THERAPEUTIC TABLET PO SCH (08:08)
[2017-02-23] MEDS: ZIPRASIDONE HCL 80 MG CAPSULE PO SCH (08:08)
[2017-02-23] MEDS: PANTOPRAZOLE SODIUM 40 MG DR TABLET PO SCH (08:08)
[2017-02-23] MEDS: DOCUSATE SODIUM 100 MG CAPSULE PO SCH (08:08)
[2017-02-23] MEDS: INSULIN DETEMIR 100 UNITS/ML SQ SCH (08:11)
[2017-02-23 12:30] VITALS: BP 126/78
[2017-02-23 15:47] LABS: GLUCOSE COMMENT 1 Received Meds; GLUCOSE,POINT OF CARE 312 MG/DL (70-110)
[2017-02-23 15:54] VITALS: BP 121/67
[2017-02-23 21:17] LABS: GLUCOSE,POINT OF CARE 271 MG/DL (70-110)
== END 2017-02-23 16:20 | DRG 420 ==
LOC: EMS 00:45 → 6N 04:54
PROVIDERS: ADMIT Internal Medicine; ATTEND Internal Medicine
DX: E11.65 Type 2 diabetes mellitus with hyperglycemia (principal); E11.649 Type 2 diabetes mellitus with hypoglycemia without coma; B95.61 Methicillin susceptible Staphylococcus aureus infection as the cause of diseases classified elsewhere; F25.0 Schizoaffective disorder, bipolar type; E03.9 Hypothyroidism, unspecified; E78.5 Hyperlipidemia, unspecified; E87.6 Hypokalemia; F41.9 Anxiety disorder, unspecified; Z59.0 Homelessness; Z79.4 Long term (current) use of insulin; Z87.891 Personal history of nicotine dependence; Z91.19 Patient's noncompliance with other medical treatment and regimen; Z88.8 Allergy status to other drugs, medicaments and biological substances; Z28.21 Immunization not carried out because of patient refusal
CPT/HCPCS: 82947; 82962; 83036; 87070; 87205; 96361; 96374; 96376; 97161; 99285; J1815

== ENCOUNTER 2020-08-12 01:56 | Inpatient (IN) | payer MEDICAID ==
[~2020-08-12 01:56] MED LIST changes: +BENZ0.5T44 PO; -BENZ2TAB10 PO; +DSS100 PO; -HALO10 PO; -INSNOV SQ; -LURA80 PO; +MULT-248 PO; -OMEP20 PO; +PANT-31 PO; -PANT40TA25 PO; -TRAZ-147 PO; +VENL-67 PO; -VENL50TA44 PO
[2020-08-12] MEDS ORDERED: OLANZapine 5 MG RAPDIS TABLET PO PRN (05:30)
[2020-08-12] MEDS ORDERED: LORazepam 2 MG TABLET PO PRN (05:30)
[2020-08-12] MEDS ORDERED: ZOLPIDEM TARTRATE 10 MG TABLET PO PRN (05:30)
[2020-08-12 06:19] LABS: GLUCOMETER DEV NAME(LOC) BV3N.; GLUCOSE,POINT OF CARE 147 MG/DL (70-110)
[2020-08-12] MEDS ORDERED: OMEPRAZOLE 20 MG CAPSULE PO PRN (07:15)
[2020-08-12] MEDS ORDERED: MAG HYDROX/AL HYDROX/SIMETH ES 30 ML SUSPENSION UDCUP PO PRN ×2 (07:15→10:30)
[2020-08-12] MEDS ORDERED: CloNIDine HCL 0.1 MG TABLET PO PRN (07:15)
[2020-08-12] MEDS ORDERED: INSULIN LISPRO 100 UNITS/ML SQ PRN (07:15)
[2020-08-12] MEDS ORDERED: IBUPROFEN 600 MG TABLET PO PRN (07:15)
[2020-08-12] MEDS ORDERED: BACITRACIN 28 GM OINTMENT TP PRN (07:15)
[2020-08-12] MEDS ORDERED: ACETAMINOPHEN 325 MG TABLET PO PRN ×2 (07:15→10:30)
[2020-08-12] MEDS ORDERED: ALBUTEROL SULFATE HFA 90 MCG/PUFF 8 GM INHALER IH PRN (07:15)
[2020-08-12] MEDS ORDERED: BENZOCAINE/MENTHOL LOZENGE PO PRN (07:15)
[2020-08-12] MEDS ORDERED: ONDANSETRON HCL 4 MG TABLET PO PRN (07:15)
[2020-08-12] MEDS ORDERED: GLUCAGON,HUMAN RECOMBINANT 1 MG VIAL IM PRN (07:15)
[2020-08-12] MEDS ORDERED: MAGNESIUM HYDROXIDE SUSPENSION 30 ML UDCUP PO PRN ×2 (07:15→10:30)
[2020-08-12] MEDS ORDERED: PETROLATUM,WHITE 28 GM JELLY TP PRN (07:15)
[2020-08-12 08:18] VITALS: BP 123/68
[2020-08-12] MEDS ORDERED: LEVO200 PO (08:48)
[2020-08-12] MEDS ORDERED: GABA-1216 PO (08:48)
[2020-08-12] MEDS ORDERED: ZIPR40CA2 PO (08:48)
[2020-08-12] MEDS ORDERED: CLOZ25TA5 PO (08:48)
[2020-08-12] MEDS ORDERED: MULTIVITAMINS WITH MINERALS, THERAPEUTIC TABLET PO SCH (09:00)
[2020-08-12] MEDS ORDERED: TOPIRAMATE 100 MG TABLET PO SCH (09:00)
[2020-08-12] MEDS ORDERED: INSULIN GLARGINE,HUM.REC.ANLOG 100 UNITS/ML SQ SCH ×2 (09:00→21:00)
[2020-08-12] MEDS ORDERED: LEFL10TA15 PO (09:20)
[2020-08-12] MEDS ORDERED: NAPR-1024 PO (09:20)
[2020-08-12] MEDS ORDERED: MELA3TAB89 PO (09:20)
[2020-08-12] MEDS ORDERED: METF-960 PO (09:20)
[2020-08-12] MEDS ORDERED: LISI-893 PO (09:20)
[2020-08-12] MEDS ORDERED: INSLAN SQ (09:20)
[2020-08-12] MEDS ORDERED: OMEG-135 PO (09:20)
[2020-08-12] MEDS ORDERED: DULA1.5P SQ (09:20)
[2020-08-12] MEDS ORDERED: SENN1TAB86 PO (09:20)
[2020-08-12] MEDS ORDERED: ASCO500 PO (09:20)
[2020-08-12] MEDS ORDERED: BENZ1TAB10 PO (09:23)
[2020-08-12 09:29] LABS: GLUCOMETER DEV NAME(LOC) BV3N.; GLUCOSE,POINT OF CARE 262 MG/DL (70-110)
[2020-08-12] MEDS ORDERED: HydrOXYzine PAMOATE 50 MG CAPSULE PO PRN (10:30)
[2020-08-12] MEDS ORDERED: GuaiFENesin/D-METHORPHAN [SUGAR-FREE] 200-20MG/10 ML SYRUP UDCUP PO PRN (10:30)
[2020-08-12] MEDS ORDERED: TUBERCULIN, PURIFIED PROTEIN DERIVATIVE 5 TU/0.1 ML SYRINGE ID ONE (10:30)
[2020-08-12] MEDS ORDERED: PROMETHAZINE HCL 25 MG TABLET PO PRN (10:30)
[2020-08-12] MEDS ORDERED: QUEtiapine FUMARATE 100 MG TABLET PO PRN (10:30)
[2020-08-12] MEDS ORDERED: LOPERAMIDE HCL 2 MG CAPSULE PO PRN (10:30)
[2020-08-12] MEDS ORDERED: GABAPENTIN 100 MG CAPSULE PO SCH (13:00)
[2020-08-12] MEDS ORDERED: ZIPRASIDONE HCL 80 MG CAPSULE PO SCH (17:00)
[2020-08-12] MEDS ORDERED: THIAMINE 100 MG TABLET PO SCH (17:00)
[2020-08-12] MEDS ORDERED: MELATONIN 5 MG TABLET PO SCH (21:00)
[2020-08-13] MEDS ORDERED: DULoxetine HCL 20 MG CAPSULE PO SCH (09:00)
[2020-08-13] MEDS ORDERED: FOLIC ACID 1 MG TABLET PO SCH (09:00)
[2020-08-13] MEDS ORDERED: OMEGA-3/DHA/EPA/FISH OIL 1,000 MG CAPSULE PO SCH (09:00)
[2020-08-13] MEDS ORDERED: MULTIVITAMINS WITH MINERALS, THERAPEUTIC TABLET PO SCH (09:00)
== END 2020-08-12 15:42 | disposition home or self-care (01) | DRG 750 ==
LOC: B3A 04:30
PROVIDERS: ADMIT Psychiatry & Neurology Psychiatry; ATTEND Psychiatry & Neurology Psychiatry
DX: F25.9 Schizoaffective disorder, unspecified (principal); G40.909 Epilepsy, unspecified, not intractable, without status epilepticus; E03.9 Hypothyroidism, unspecified; E78.5 Hyperlipidemia, unspecified; G47.00 Insomnia, unspecified; K59.00 Constipation, unspecified; F60.0 Paranoid personality disorder; Z79.4 Long term (current) use of insulin; Z87.891 Personal history of nicotine dependence; Z91.5 Personal history of self-harm; F41.9 Anxiety disorder, unspecified
CPT/HCPCS: 82962; J1815; Q0162